=== PATIENT | female | born 1980 | race Native Hawaiian/Other Pacific Islander ===

== ENCOUNTER 2018-08-24 02:26 | Emergency (ER) | payer MEDICAID ==
[2018-08-24] MEDS ORDERED: Sodium Chloride 0.9% 1,000 ML IV ONE (02:38)
--- NOTE | 2018-08-24 02:43 | C.PDOC ---
History Of Present Illness 38 year old female presents to the ED c/o sudden onset severe epigastric abdominal pain that started 30 minutes ago. Patient denies fever, chills, nausea, vomit, diarrhea, back pain, rash, dysuria, hematuria. Chief Complaint (Nursing): GI Problem History Per: Patient History/Exam Limitations: no limitations Onset/Duration Of Symptoms: Mins (30) Current Symptoms Are (Timing): Still Present Severity: Severe Location Of Pain/Discomfort: Epigastric Radiation Of Pain To:: None Quality Of Discomfort: "Pain" Associated Symptoms: denies: Nausea, Vomiting, Diarrhea, Urinary Symptoms Recent travel outside of the [place]: No Additional History Per: Patient Abnormal Vaginal Bleeding: No Past Medical History Reviewed: Historical Data, Nursing Documentation, Vital Signs Vital Signs: Last Vital Signs Temp 98 F 08/24/18 02:30 Pulse 86 08/24/18 02:30 Resp 20 08/24/18 02:30 BP 119/77 08/24/18 02:30 Pulse Ox 95 08/24/18 02:30 Primary Care Provider: Feroz Juarez Surg - Medical History PMH: No Chronic Diseases Surgical History: No Surg Hx Family History: States: Unknown Family Hx - Social History Hx Alcohol Use: No Hx Substance Use: No - Immunization History Hx Tetanus Toxoid Vaccination: No Hx Influenza Vaccination: No Hx Pneumococcal Vaccination: No Review Of Systems Constitutional: Negative for: Fever, Chills Cardiovascular: Negative for: Chest Pain Respiratory: Negative for: Shortness of Breath Gastrointestinal: Positive for: Abdominal Pain. Negative for: Nausea, Vomiting, Diarrhea Genitourinary: Negative for: Dysuria, Hematuria Musculoskeletal: Negative for: Back Pain Skin: Negative for: Rash Neurological: Negative for: Weakness, Numbness Physical Exam - Physical Exam Appears: Non-toxic, In Acute Distress Skin: Normal Color, Warm, Dry Head: Atraumatic, Normacephalic Eye(s): bilateral: Normal Inspection Oral Mucosa: Moist Neck: Normal ROM, Supple Chest: Symmetrical Cardiovascular: Rhythm Regular Respiratory: Normal Breath Sounds, No Rales, No Rhonchi, No Wheezing Gastrointestinal/Abdominal: Soft, Tenderness (severe epigastric), No Guarding, No Rebound Back: No CVA Tenderness Extremity: Normal ROM, No Tenderness, No Swelling Neurological/Psych: Oriented x3, Normal Speech, Normal Cognition Gait: Steady ED Course And Treatment - Laboratory Results Result Diagrams: 08/24/18 02:57 08/24/18 02:57 O2 Sat by Pulse Oximetry: 95 (ON RA) Pulse Ox Interpretation: Normal - CT Scan/US CT abd/pelvis Other Rad Studies (CT/US): Read By Radiologist, Radiology Report Reviewed CT/US Interpretation: CT SCAN OF THE ABDOMEN AND PELVIS WITH CONTRAST. CLINICAL HISTORY: Upper abdominal pain. TECHNIQUE: Multiple axial and coronal CT images were obtained through the abdomen and pelvis after administration of intravenous contrast material. COMMENTS: Cholelithiasis. Uncomplicated colonic diverticu losis. Mild amount of fecal residue in the large bowel. Fluid-filled stomach, probably mild gastroparesis. Mild diffuse thickening of the stomach. Underdistention versus mild gastritis. 1.3 cm right ovarian ruptured follicle/corpus luteum cyst. Minimal amount of free fluid in the right adnexa. Uterine fibroids. The liver is of uniform attenuation without mass or defect. There is no intra or extrahepatic biliary ductal dilatation. The spleen is normal. The pancreas is of normal contour and attenuation characteristics. There is no evidence of adrenal mass. Both kidneys demonstrate prompt and equal nephrograms. The kidneys are normal in size, shape and configuration. There is no evidence of renal or ureteral mass. No renal or ureteral calculi are identified. There is no hydroureter or hydronephrosis. No evidence for appendicitis. There is no bowel wall thickening. No evidence for small or large bowel obstruction. There is no evidence of abdominal lymphadenopathy. There is no evidence of intrinsic or extrinsic bladder mass. There is no pelvic lymphadenopathy. Images of the lung bases show no evidence of pleural or parenchymal mass. There are no pleural effusions. The bony structures are free of lytic or blastic lesions. Moderate focal spondylosis at L5-S1. IMPRESSION: Cholelithiasis. Uncomplicated colonic diverticulosis. Mild amount of fecal residue in the large bowel. Fluid-filled stomach, probably mild gastroparesis. Mild diffuse thickening of the stomach. Underdistention versus mild gastritis. 1.3 cm right ovarian ruptured follicle/corpus luteum cyst. Minimal amount of free fluid in the right adnexa. Uterine fibroids. Thank you for your kind referral of this patient. . Electronically signed on August 24, 2018 4:40:22 AM EDT by: Josy Hamlin M.D., Certified by ABR, MSK, Neuroradiology Medical Decision Making Medical Decision Making: Plan: * CT abd/pelvis * Labs * Bentyl 20 mg IM * Pepcid 20 mg IVP * IV fluids * Toradol 30 mg IVP * UA Disposition Counseled Patient/Family Regarding: Diagnosis - Disposition Referrals: [facility] [Outside] Disposition: HOME/ ROUTINE Disposition Time: 07:07 Condition: IMPROVED Prescriptions: Dicyclomine [Bentyl] 10 mg PO QID #20 cap Tramadol HCl/Acetaminophen [Ultracet Tablet] 1 each PO Q4 #14 tablet Instructions: Gallstones (DC) Forms: [employer] (Romansh) - POA Present On Arrival: None - Clinical Impression Clinical Impression: Gall bladder pain, Gall stone - Scribe Statement The provider has reviewed the documentation as recorded by the Scribe Jose Miguel Bhatia All medical record entries made by the Scribe were at my direction and personally dictated by me. I have reviewed the chart and agree that the record accurately reflects my personal performance of the history, physical exam, medical decision making, and the department course for this patient. I have also personally directed, reviewed, and agree with the discharge instructions and disposition.
[2018-08-24] MEDS ORDERED: Sodium Chloride 0.9% 1,000 ML ONE (02:45)
[2018-08-24 03:02] LABS: HCG,QUALITATIVE URINE NEGATIVE (NEGATIVE)
[2018-08-24 03:03] LABS: BASO % 0.7 % (0.0-2.0); EOS # 0.1 K/uL (0.0-0.7); EOS % 1.4 % (0.0-4.0); HEMOGLOBIN 11.9 g/dL (11.0-16.0); LYMPH # 1.9 K/uL (1.0-4.3); LYMPH % 43.9 % (20.0-40.0); MEAN CELL VOLUME 95.1 fL (81.0-99.0); MEAN CORPUSCULAR HEMOGLOBIN 31.7 pg (27.0-31.0); MEAN CORPUSCULAR HGB CONC 33.4 g/dL (33.0-37.0); MEAN PLATELET VOLUME 9.2 fL (7.2-11.7); MONO # 0.6 K/uL (0.0-0.8); NEUT # 1.8 K/uL (1.8-7.0); NRBC % 0.1 % (0.0-2.0); RBC 3.76 Mil/uL (3.80-5.20); RED CELL DISTRIBUTION WIDTH 12.7 % (11.5-14.5); WHITE BLOOD COUNT 4.3 K/uL (4.8-10.8)
[2018-08-24 03:05] LABS: SQUAMOUS EPITHIAL 2 /hpf (0-5); URINE AMORPHOUS SEDIMENT RARE /ul (<OCC); URINE BACTERIA RARE (<OCC); URINE BILIRUBIN NEGATIVE (NEGATIVE); URINE BLOOD NEGATIVE (NEGATIVE); URINE CLARITY Turbid (Clear); URINE COLOR Yellow (YELLOW); URINE GLUCOSE (UA) NORMAL (Normal); URINE LEUKOCYTE ESTERASE NEG Leu/uL (Negative); URINE PROTEIN NEGATIVE (NEGATIVE); URINE UROBILINOGEN NORMAL mg/dL (0.2-1.0)
[2018-08-24 03:17] LABS: ALB/GLOB RATIO 1.3 (1.0-2.1); ALBUMIN 4.5 g/dL (3.5-5.0); ALT/SGPT 27 U/L (9-52); AST/SGOT 30 U/L (14-36); BLOOD UREA NITROGEN 16 mg/dL (7-17); CALCIUM 9.2 mg/dl (8.6-10.4); GFR NON-AFRICAN AMERICAN > 60; LIPASE 247 U/L (23-300)
[2018-08-24 06:20] VITALS: PULSE 77; TEMP 98.7
[2018-08-24 07:09] VITALS: O2SAT 95
[2018-08-24 07:21] VITALS: BP 96/56; RESP 18
--- NOTE | 2018-08-24 08:22 | CT ---
CT abdomen and pelvis HISTORY: Abdominal pain. COMPARISON: None available. TECHNIQUE: Multiple contiguous axial images were performed through the abdomen and pelvis with the use of intravenous contrast. Subsequently, sagittal coronal reformatted images were obtained. This CT exam was performed using one or more of the following dose reduction techniques: Automated exposure control, adjustment of the mA and/or kV according to patient size, and/or use of iterative reconstruction technique. Findings: Lung bases are clear. No pleural or pericardial effusion. Liver is preserved. Gallbladder: Cholelithiasis. Prominent calculus measures up to 7 millimeters. Mild prominence of the common bile duct measuring up to 5.2 millimeters. Spleen is preserved. Adrenal glands are preserved. Pancreas is preserved. Upper abdominal bowel demonstrates a few distended loops of small bowel in the upper mid abdomen. Fluid-filled stomach which may represent gastroparesis. Mild thickening of the stomach. Right kidney: No gross calculi or hydronephrosis. Left Kidney: No gross calculi or hydronephrosis. Urinary bladder is grossly preserved. Small amount of free fluid within the pelvic cul-de-sac as well as adjacent to the right adnexa. Heterogeneous and prominent uterus/endometrium. Prominence of the right adnexa measuring up to 3.2 centimeters with involuting cyst measuring 1.7 centimeters. Correlation with pelvic ultrasound may be helpful if clinically indicated. Evaluation of the lower abdominal bowel demonstrates fecal retention in the colon. Under distended descending colon. Colonic diverticulosis. Appendix is within normal limits. Few shotty para-aortic and inguinal lymph nodes. Few shotty mesenteric lymph nodes. Degenerative changes in the spine. Posterior disc osteophyte complex at the L5-S1 level. Impression: 1. Prominence of the right adnexa measuring up to 3.2 centimeters with involuting cyst measuring 1.7 centimeters. Small amount of free fluid within the pelvic cul-de-sac as well as adjacent to the right adnexa. Heterogeneous and prominent uterus/endometrium with some questionable uterine fibroids. Correlation with pelvic ultrasound may be helpful if clinically indicated. 2. Cholelithiasis. Prominent calculus measures up to 7 millimeters. Mild prominence of the common bile duct measuring up to 5.2 millimeters. 3. Posterior disc osteophyte complex at the L5-S1 level. Additional findings as above. A preliminary report was generated at 4:40 a.m. on 08/24/[address] Josy Hamlin from [facility] rad.
--- NOTE | 2018-08-24 12:13 | US ---
Date of service: 08/24/2018 HISTORY: GB stone/ pain COMPARISON: CT of the abdomen pelvis with contrast performed 08/24/18 TECHNIQUE: Sonographic evaluation of the right upper quadrant of the abdomen. FINDINGS: LIVER: Measures 12.1 cm in length and appears within normal limits of shape and echotexture. No focal hepatic mass identified. The main portal vein appears patent with normal directional flow. No intrahepatic bile duct dilatation. GALLBLADDER: Gallstones. No gallbladder wall thickening or pericholecystic edema. Negative sonographic Coburn's sign as assessed by the plate glass installer. COMMON BILE DUCT: Measures 7 mm. PANCREAS: Not well-visualized. RIGHT KIDNEY: Measures approximately 9.6 x 4.0 x 4.7 cm. No obstructing calculus or hydronephrosis identified. AORTA: Limited visualization appears grossly unremarkable. IVC: Limited visualization appears grossly unremarkable. OTHER FINDINGS: None . IMPRESSION: Cholelithiasis. Mildly dilated common bile duct measuring approximately 7 mm. Preliminary impression was provided by [employer].
== END 2018-08-24 07:21 | disposition home or self-care (01) ==
LOC: C.ER 02:26
DX: K80.20 Calculus of gallbladder without cholecystitis without obstruction (principal)
CPT/HCPCS: 74177; 76705; 80053; 81001; 83690; 84703; 85025; 96372; 96374; 96375; 99285; J0500; J1885; J2270; J2405; J7030